=== PATIENT | female | born 1985 | race Caucasian/White ===

== ENCOUNTER 2021-12-21 21:34 | Emergency (ER) | payer OTHER ==
[2021-12-21] MEDS ORDERED: PAXLOVID 150-11 EACH PO (22:49)
[2021-12-21] MEDS ORDERED: ONDANSETRON ODT4 MG PO (22:49)
[2021-12-21] MEDS ORDERED: PREDNISONE 20MG20 MG PO (22:49)
[2021-12-21 23:15] LABS: INFLUENZA A NAA NEGATIVE (NEGATIVE)
[2021-12-21 23:17] LABS: CORONAVIRUS 2019 SARS-COV-2 POSITIVE (NEGATIVE)
== END 2021-12-21 23:49 | disposition home or self-care (01) ==
LOC: FER 21:34
PROVIDERS: Internal Medicine
DX: U07.1 COVID-19 (principal); I10 Essential (primary) hypertension; E11.9 Type 2 diabetes mellitus without complications; F17.210 Nicotine dependence, cigarettes, uncomplicated; Z88.0 Allergy status to penicillin; Z88.2 Allergy status to sulfonamides; Z88.5 Allergy status to narcotic agent; Z79.84 Long term (current) use of oral hypoglycemic drugs; Z79.899 Other long term (current) drug therapy
CPT/HCPCS: 87880; J1100; U0002

== ENCOUNTER 2022-01-05 04:59 | Emergency (ER) | payer OTHER ==
[~2022-01-05 04:59] MED LIST: ONDANSETRON ODT4 MG PO; PAXLOVID 150-11 EACH PO; PREDNISONE 20MG20 MG PO
[2022-01-05] MEDS ORDERED: NORCO 5-325 TA1 EACH PO (05:55)
[2022-01-05] MEDS ORDERED: NAPROXEN500 MG PO (05:55)
== END 2022-01-05 06:13 | disposition home or self-care (01) ==
LOC: FER 04:59
DX: S90.121A Contusion of right lesser toe(s) without damage to nail, initial encounter (principal); M25.571 Pain in right ankle and joints of right foot; I10 Essential (primary) hypertension; E11.9 Type 2 diabetes mellitus without complications; F17.210 Nicotine dependence, cigarettes, uncomplicated; Z88.0 Allergy status to penicillin; Z88.2 Allergy status to sulfonamides; Z79.899 Other long term (current) drug therapy; Z79.84 Long term (current) use of oral hypoglycemic drugs; Z88.6 Allergy status to analgesic agent; W20.8XXA Other cause of strike by thrown, projected or falling object, initial encounter; Y92.009 Unspecified place in unspecified non-institutional (private) residence as the place of occurrence of the external cause
CPT/HCPCS: 73620